=== PATIENT | male | born 1955 | race Caucasian/White ===

== ENCOUNTER 2018-02-12 02:46 | Emergency (ER) | payer OTHER ==
[2018-02-12] MEDS ORDERED: MEPERIDINE HCL 25 MG/0.5 ML ONE (03:35)
[2018-02-12] MEDS ORDERED: MEPERIDINE HCL 50 MG/ML AMP ONE (03:35)
[2018-02-12] MEDS ORDERED: PROMETHAZINE 25 MG/ML VIAL ONE (03:36)
--- NOTE | 2018-02-12 03:36 | EDPHYS ---
Physician Documentation [facility] Name: Ruddy Maya Age: 62 yrs Sex: Male : 1955 Arrival Date: 02/12/2018 Time: 02:47 Bed 14 Private MD: ED Physician Rj Del Rio HPI: 02/12 03:31 This 62 yrs old Male presents to ER via Unassigned with complaints of Low pkl Back Pain. 03:31 The patient presents with pain that is acute. The symptoms are located in the low back. pkl The pain radiates to the right leg. The problem was sustained when lifting heavy object, 1 week ago. Onset: The symptoms/episode began/occurred today. Associated signs and symptoms: The patient has no apparent associated signs or symptoms. Historical: - Allergies: 04:17 Lotrel; ea - Home Meds: 04:19 Humalog Pen 45 units during the day Sub-Q [Active]; Levemir 10 Units Am, 12 units pM ea subcutaneous soln [Active]; Lipitor 20 mg Oral tab 1 tab once daily [Active]; Micardis 40 mg Oral tab 1 tab once daily [Active]; - PMHx: 04:19 Diabetes - IDDM; ea - PSHx: 04:19 left knee surgery; lapband; ea - Immunization history:: Adult Immunizations up to date. - Social history:: Smoking status: Patient/guardian denies using tobacco. - Ebola Screening: : No symptoms or risks identified at this time. ROS: 03:31 Eyes: Negative for injury, pain, redness, and discharge, ENT: Negative for injury, pkl pain, and discharge, Neck: Negative for injury, pain, and swelling, Cardiovascular: Negative for chest pain, palpitations, and edema, Respiratory: Negative for shortness of breath, cough, wheezing, and pleuritic chest pain, Abdomen/GI: Negative for abdominal pain, nausea, vomiting, diarrhea, and constipation. 03:31 Back: Positive for pain with movement, of the lower back. 03:31 : Negative for urinary symptoms. 03:31 MS/extremity: Negative for acute changes. 03:31 Skin: Negative for rash. 03:31 Neuro: Negative for altered mental status. Exam: 03:31 Head/Face: Normocephalic, atraumatic. Eyes: Pupils equal round and reactive to light, pkl extra-ocular motions intact. Lids and lashes normal. Conjunctiva and sclera are non-icteric and not injected. Cornea within normal limits. Periorbital areas with no swelling, redness, or edema. ENT: Nares patent. No nasal discharge, no septal abnormalities noted. Tympanic membranes are normal and external auditory canals are clear. Oropharynx with no redness, swelling, or masses, exudates, or evidence of obstruction, uvula midline. Mucous membranes moist. Neck: Trachea midline, no thyromegaly or masses palpated, and no cervical lymphadenopathy. Supple, full range of motion without nuchal rigidity, or vertebral point tenderness. No Meningismus. Chest/axilla: Normal chest wall appearance and motion. Nontender with no deformity. No lesions are appreciated. Cardiovascular: Regular rate and rhythm with a normal S1 and S2. No gallops, murmurs, or rubs. Normal PMI, no JVD. No pulse deficits. Respiratory: Lungs have equal breath sounds bilaterally, clear to auscultation and percussion. No rales, rhonchi or wheezes noted. No increased work of breathing, no retractions or nasal flaring. Abdomen/GI: Soft, non-tender, with normal bowel sounds. No distension or tympany. No guarding or rebound. No evidence of tenderness throughout. 03:31 Back: pain, that is moderate, of the lower back, Straight leg raises: right lower extremity illicits pain, at 45 degrees. 03:31 : Exam negative for acute changes. 03:31 Musculoskeletal/extremity: Exam is negative for acute changes. 03:31 Skin: Exam negative for rash. 03:31 Neuro: Orientation: is normal, Mentation: is normal, Cranial nerves: grossly normal, Motor: is normal. Vital Signs: 03:35 BP 154 / 81; Pulse 96; Resp 18; Temp 97.9; Pulse Ox 100% on R/A; Weight 77.11 kg; ea Height 5 ft. 7 in. (170.18 cm); Pain 9/10; 03:50 BP 138 / 70; Pulse 88; Resp 18; Temp 97.6; Pulse Ox 98% on R/A; Pain 6/10; ea 03:35 Body Mass Index 26.63 (77.11 kg, 170.18 cm) ea MDM: 02:56 Patient medically screened. pkl 03:31 Data reviewed: vital signs, nurses notes. ED course: Advised MRI lumbar spines if pain pkl persist. Administered Medications: 03:33 Drug: Demerol 75 mg Route: IM; Site: left gluteus; ea 04:06 Follow up: Response: No adverse reaction; Marked relief of symptoms; Pain is decreased ea 03:33 Drug: Phenergan 12.5 mg Route: IM; Site: right gluteus; ea 04:06 Follow up: Response: No adverse reaction; Marked relief of symptoms ea Disposition: 02/12/18 03:36 Discharged to Home. Impression: Acute low back pain. Possible prolapsed intervertebral disc. - Condition is Stable. - Prescriptions for Ultram 50 mg Oral Tablet - take 1 tablet by ORAL route every 8 hours As needed; 30 tablet. Cyclobenzaprine 10 mg Oral Tablet - take 1 tablet by ORAL route 2 times per day As needed; 30 tablet. - Medication Reconciliation Form, Thank You Letter, Antibiotic Education, Prescription Opioid Use form. - Follow up: Private Physician; When: 1 week; Reason: Re-evaluation by your physician. - Problem is new. - Symptoms have improved. Signatures: Rj Del Rio MD MD pkl iVktoria Ford RN RN enmanuel Corrections: (The following items were deleted from the chart) 04:40 03:36 02/12/2018 03:36 Discharged to Home. Impression: Acute low back pain. Possible ea prolapsed intervertebral disc. Condition is Stable. Forms are Medication Reconciliation Form, Thank You Letter, Antibiotic Education, Prescription Opioid Use. Follow up: Private Physician; When: 1 week; Reason: Re-evaluation by your physician. Problem is new. Symptoms have improved. pkl
--- NOTE | 2018-02-12 04:40 | ER ---
Nurse's Notes [facility] Name: Ruddy Maya Age: 62 yrs Sex: Male : 1955 Arrival Date: 02/12/2018 Time: 02:47 Bed 14 Private MD: Diagnosis: Acute low back pain. Possible prolapsed intervertebral disc Presentation: 02/12 03:31 Acuity: MITRA 5 ea 03:31 Presenting complaint: Patient states: He is unable to sit due to pain to left side of ea hips that radiates to right leg occasional numbness. Pt reports it started when he tried reaching for something at the [employer]. Transition of care: patient was not received from another setting of care. Onset of symptoms was February 12, 2018. Risk Assessment: Do you want to hurt yourself or someone else? Patient reports no desire to harm self or others. Initial Sepsis Screen: Does the patient meet any 2 criteria? No. Patient's initial sepsis screen is negative. Does the patient have a suspected source of infection? No. Patient's initial sepsis screen is negative. Care prior to arrival: None. 03:31 Method Of Arrival: Ambulatory ea Historical: - Allergies: 04:17 Lotrel; ea - Home Meds: 04:19 Humalog Pen 45 units during the day Sub-Q [Active]; Levemir 10 Units Am, 12 units pM ea subcutaneous soln [Active]; Lipitor 20 mg Oral tab 1 tab once daily [Active]; Micardis 40 mg Oral tab 1 tab once daily [Active]; - PMHx: 04:19 Diabetes - IDDM; ea - PSHx: 04:19 left knee surgery; lapband; ea - Immunization history:: Adult Immunizations up to date. - Social history:: Smoking status: Patient/guardian denies using tobacco. - Ebola Screening: : No symptoms or risks identified at this time. Screenin:40 Abuse screen: Denies threats or abuse. Nutritional screening: No deficits noted. ea Tuberculosis screening: No symptoms or risk factors identified. Fall Risk None identified. Assessment: 03:31 General: Appears uncomfortable, Behavior is calm, cooperative, appropriate for age. ea Pain: Complains of pain in left low back and right low back Pain radiates to right leg Pain currently is 5 out of 10 on a pain scale. Quality of pain is described as aching. Neuro: No deficits noted. Level of Consciousness is awake, alert, obeys commands, Oriented to person, place, time, situation. Cardiovascular: No deficits noted. Patient's skin is warm and dry. Respiratory: No deficits noted. GI: No deficits noted. : No deficits noted. EENT: No deficits noted. Derm: No deficits noted. Musculoskeletal: Circulation, motion, and sensation intact. Reports pain in back and right leg. 03:50 Reassessment: Patient and/or family updated on plan of care and expected duration. Pain ea level reassessed. Patient is alert, oriented x 3, equal unlabored respirations, skin warm/dry/pink. Discharge instructions given to patient, verbalized the understanding of instruction. Patient states feeling better. Patient states symptoms have improved. Vital Signs: 03:35 BP 154 / 81; Pulse 96; Resp 18; Temp 97.9; Pulse Ox 100% on R/A; Weight 77.11 kg; ea Height 5 ft. 7 in. (170.18 cm); Pain 9/10; 03:50 BP 138 / 70; Pulse 88; Resp 18; Temp 97.6; Pulse Ox 98% on R/A; Pain 6/10; ea 03:35 Body Mass Index 26.63 (77.11 kg, 170.18 cm) ea ED Course: 02:47 Patient arrived in ED. am2 02:56 Rj Del Rio MD is Attending Physician. pkl 03:31 Viktoria Ford RN is Primary Nurse. ea 03:40 Arm band placed on right wrist. Patient placed in an exam room, on pulse oximetry. ea 03:40 Patient has correct armband on for positive identification. Bed in low position. Call ea light in reach. 03:50 No provider procedures requiring assistance completed. Patient did not have IV access ea during this emergency room visit. 04:15 Triage completed. ea Administered Medications: 03:33 Drug: Demerol 75 mg Route: IM; Site: left gluteus; ea 04:06 Follow up: Response: No adverse reaction; Marked relief of symptoms; Pain is decreased ea 03:33 Drug: Phenergan 12.5 mg Route: IM; Site: right gluteus; ea 04:06 Follow up: Response: No adverse reaction; Marked relief of symptoms ea Outcome: 03:36 Discharge ordered by . pkl 03:50 Discharged to home via wheelchair, with family. ea 03:50 Condition: improved 03:50 Discharge instructions given to patient, Instructed on discharge instructions, follow up and referral plans. medication usage, Demonstrated understanding of instructions, follow-up care, medications, Prescriptions given X 2. 04:00 Patient left the ED. ea Signatures: Rj Del Rio MD MD pkl Moreno, Amanda am2 Antunez, Elena, RN RN ea Corrections: (The following items were deleted from the chart) 05:54 04:40 Patient left the ED. ea ea 05:55 04:09 Reassessment: Patient and/or family updated on plan of care and expected ea duration. Pain level reassessed. Patient is alert, oriented x 3, equal unlabored respirations, skin warm/dry/pink. Discharge instructions given to patient, verbalized the understanding of instruction. Patient states feeling better. Patient states symptoms have improved. ea
[2018-02-12 05:03] VITALS: BP 154/81; TEMP 97.9; O2SAT 100
== END 2018-02-12 04:40 | disposition home or self-care (01) ==
LOC: ER 02:46
DX: M54.5 Low back pain (principal); E11.9 Type 2 diabetes mellitus without complications; Z79.4 Long term (current) use of insulin; Z88.8 Allergy status to other drugs, medicaments and biological substances
CPT/HCPCS: 96372; 99283; J2175; J2550

== ENCOUNTER 2018-05-06 11:33 | Emergency (ER) | payer OTHER ==
[2018-05-06] MEDS ORDERED: TETRACAINE HCL 0.5% 2ML OPTH ONE (12:33)
[2018-05-06] MEDS ORDERED: FLUORESCEIN SODIUM 0.6 MG/WRAP ONE (12:33)
--- NOTE | 2018-05-06 13:12 | EDPHYS ---
Physician Documentation [facility] Name: Ruddy Maya Age: 62 yrs Sex: Male : 1955 Arrival Date: 05/06/2018 Time: 11:38 Bed 30 Private MD: ED Physician Kenji Calderon HPI: 05/06 12:30 This 62 yrs old Male presents to ER via Ambulatory with complaints of Eye pm1 Problem. 12:30 Onset: The symptoms/episode began/occurred 2 day(s) ago. Duration: the symptoms are pm1 continuous. Aggravated by nothing. Alleviated by nothing. Associated signs and symptoms: Pertinent negatives: vision changes or blurry vision. Patient wears glasses. Severity of symptoms: in the emergency department the symptoms have improved. The patient has not experienced similar symptoms in the past. Patient with sensation of left eye foreign body on Monday that has resolved but is having some eyelid swelling and matting to left eye. Patient with onset of itching to his right eye today. Historical: - Allergies: 11:45 Lotrel; aa5 - PMHx: 11:45 Diabetes - IDDM; Hypertension; Hyperlipidemia; aa5 - PSHx: 11:45 left knee surgery; lapband; aa5 - Immunization history:: Last tetanus immunization: unknown. - Social history:: Smoking status: Patient/guardian denies using tobacco. - Ebola Screening: : No symptoms or risks identified at this time. ROS: 12:30 Constitutional: Negative for fever, chills, and weight loss. pm1 12:30 ENT: Negative for injury, pain, and discharge, Neck: Negative for injury, pain, and swelling, Cardiovascular: Negative for chest pain, palpitations, and edema, Respiratory: Negative for shortness of breath, cough, wheezing, and pleuritic chest pain, Abdomen/GI: Negative for abdominal pain, nausea, vomiting, diarrhea, and constipation, Back: Negative for injury and pain, MS/Extremity: Negative for injury and deformity, Skin: Negative for injury, rash, and discoloration, Neuro: Negative for headache, weakness, numbness, tingling, and seizure. 12:30 Eyes: Positive for discharge, itching, Negative for blurry vision, vision loss, visual disturbance. Exam: 12:30 Visual Acuity: I have reviewed the nursing documentation. pm1 12:30 Constitutional: This is a well developed, well nourished patient who is awake, alert, and in no acute distress. Head/Face: Normocephalic, atraumatic. 12:30 ENT: Nares patent. No nasal discharge, no septal abnormalities noted. Tympanic membranes are normal and external auditory canals are clear. Oropharynx with no redness, swelling, or masses, exudates, or evidence of obstruction, uvula midline. Mucous membranes moist. Neck: Trachea midline, no thyromegaly or masses palpated, and no cervical lymphadenopathy. Supple, full range of motion without nuchal rigidity, or vertebral point tenderness. No Meningismus. Chest/axilla: Normal chest wall appearance and motion. Nontender with no deformity. No lesions are appreciated. Cardiovascular: Regular rate and rhythm with a normal S1 and S2. No gallops, murmurs, or rubs. Normal PMI, no JVD. No pulse deficits. Respiratory: Lungs have equal breath sounds bilaterally, clear to auscultation and percussion. No rales, rhonchi or wheezes noted. No increased work of breathing, no retractions or nasal flaring. Abdomen/GI: Soft, non-tender, with normal bowel sounds. No distension or tympany. No guarding or rebound. No evidence of tenderness throughout. Back: No spinal tenderness. No costovertebral tenderness. Full range of motion. Skin: Warm, dry with normal turgor. Normal color with no rashes, no lesions, and no evidence of cellulitis. MS/ Extremity: Pulses equal, no cyanosis. Neurovascular intact. Full, normal range of motion. 12:30 Eyes: Periorbital structures: appear normal, Pupils: no acute changes, equal, round, and reactive to light and accomodation, Extraocular movements: intact throughout, Conjunctiva: injected, in the left eye, Corneas: abrasion, is not appreciated, foreign body, is not appreciated, a fluorescein strip employed to appreciate the findings, Sclera: no appreciated abnormality, Lids and lashes: appear normal. 12:30 Neuro: Orientation: is normal, Motor: moves all fours. Vital Signs: 11:45 BP 147 / 79; Pulse 75; Resp 16 S; Temp 97.7(TE); Pulse Ox 95% on R/A; Weight 99.34 kg aa5 (R); Height 5 ft. 7 in. (170.18 cm) (R); Pain 2/10; 11:45 Body Mass Index 34.30 (99.34 kg, 170.18 cm) aa5 Visual Acuity: 12:34 Left Eye Visual acuity 20/20, ; Right Eye Visual acuity 20/30, ; Both Eyes Visual aa5 acuity 20/20; With Lenses; MDM: 12:10 Patient medically screened. pm1 13:10 Data reviewed: vital signs. Data interpreted: Pulse oximetry: on room air is 95 %. pm1 Interpretation: normal. Counseling: I had a detailed discussion with the patient and/or guardian regarding: the historical points, exam findings, and any diagnostic results supporting the discharge/admit diagnosis, the need for outpatient follow up, to return to the emergency department if symptoms worsen or persist or if there are any questions or concerns that arise at home. 05/06 12:20 Order name: Visual Acuity; Complete Time: 12:34 pm1 05/06 12:20 Order name: Eye Tray; Complete Time: 12:26 pm1 05/06 12:20 Order name: Fluoresene Opth strip; Complete Time: 12:26 pm1 Administered Medications: 13:09 Drug: Tetracaine Drops 0.5 % 1 drops {Note: Administered by Isaac SNYDER.} Route: wh Ophthalmic; Site: both eyes; 13:22 Follow up: Response: No adverse reaction Disposition: 14:21 Co-signature as Attending Physician, Kenji Calderon MD I agree with the assessment and kdr plan of care. Disposition: 05/06/18 13:11 Discharged to Home. Impression: Conjunctivitis. - Condition is Stable. - Discharge Instructions: Viral Conjunctivitis, Bacterial Conjunctivitis, [id number]. - Prescriptions for tobramycin 0.3 % Ophthalmic drops - instill 1 drop by OPHTHALMIC route every 4 hours for 7 days; 10 milliliter. - Medication Reconciliation Form, Thank You Letter, Antibiotic Education, Prescription Opioid Use form. - Follow up: Emergency Department; When: As needed; Reason: Worsening of condition. Follow up: Private Physician; When: 2 - 3 days; Reason: Recheck today's complaints, Continuance of care, Re-evaluation by your physician. - Problem is new. - Symptoms have improved. Signatures: Kenji Calderon MD MD [facility] Radha Manzanares RN RN aa5 Isaac Corcoran MASS SPECTROMETRY SPECIALIST MASS SPECTROMETRY SPECIALIST pm1 Jason Arreola Corrections: (The following items were deleted from the chart) 13:22 13:11 05/06/2018 13:11 Discharged to Home. Impression: Conjunctivitis. Condition is wh Stable. Forms are Medication Reconciliation Form, Thank You Letter, Antibiotic Education, Prescription Opioid Use. Follow up: Emergency Department; When: As needed; Reason: Worsening of condition. Follow up: Private Physician; When: 2 - 3 days; Reason: Recheck today's complaints, Continuance of care, Re-evaluation by your physician. Problem is new. Symptoms have improved. pm1
--- NOTE | 2018-05-06 13:12 | ER ---
Nurse's Notes [facility] Name: Ruddy Maya Age: 62 yrs Sex: Male : 1955 Arrival Date: 05/06/2018 Time: 11:38 Bed 30 Private MD: Diagnosis: Conjunctivitis Presentation: 05/06 11:42 Presenting complaint: Patient states: "I think I have an eye infection". Pt states "It aa5 started when I felt like I had something in my left eye Monday but then it went away and both my eyes are irritated now". Pt states "I've taken amoxicillin for about 10 days now because my urologist put me on it". Transition of care: patient was not received from another setting of care. Onset of symptoms was April 2018. Risk Assessment: Do you want to hurt yourself or someone else? Patient reports no desire to harm self or others. Initial Sepsis Screen: Does the patient meet any 2 criteria? No. Patient's initial sepsis screen is negative. Does the patient have a suspected source of infection? No. Patient's initial sepsis screen is negative. Care prior to arrival: None. 11:42 Method Of Arrival: Ambulatory aa5 11:42 Acuity: MITRA 4 aa5 Historical: - Allergies: 11:45 Lotrel; aa5 - PMHx: 11:45 Diabetes - IDDM; Hypertension; Hyperlipidemia; aa5 - PSHx: 11:45 left knee surgery; lapband; aa5 - Immunization history:: Last tetanus immunization: unknown. - Social history:: Smoking status: Patient/guardian denies using tobacco. - Ebola Screening: : No symptoms or risks identified at this time. Screenin:07 Abuse screen: Denies threats or abuse. Nutritional screening: No deficits noted. aa5 Tuberculosis screening: No symptoms or risk factors identified. Fall Risk None identified. Assessment: 11:55 General: Appears comfortable, Behavior is calm, cooperative. Pain: Complains of pain in aa5 right eye and left eye Pain currently is 2 out of 10 on a pain scale. Quality of pain is described as "irritation" Pain began 2-3 days ago. Is continuous. Neuro: Level of Consciousness is awake, alert, obeys commands, Oriented to person, place, time, situation. Cardiovascular: Patient's skin is warm and dry. Respiratory: Airway is patent Respiratory effort is even, unlabored, Respiratory pattern is regular, symmetrical. GI: No signs and/or symptoms were reported involving the gastrointestinal system. : No signs and/or symptoms were reported regarding the genitourinary system. EENT: mild redness noted to sclera of both eyes . Derm: Skin is pink, warm \\T\\ dry. Musculoskeletal: Range of motion: intact in all extremities. 13:12 Reassessment: Patient appears in no apparent distress at this time. Patient and/or wh family updated on plan of care and expected duration. Pain level reassessed. Patient is alert, oriented x 3, equal unlabored respirations, skin warm/dry/pink. Vital Signs: 11:45 BP 147 / 79; Pulse 75; Resp 16 S; Temp 97.7(TE); Pulse Ox 95% on R/A; Weight 99.34 kg aa5 (R); Height 5 ft. 7 in. (170.18 cm) (R); Pain 2/10; 11:45 Body Mass Index 34.30 (99.34 kg, 170.18 cm) aa5 Visual Acuity: 12:34 Left Eye Visual acuity 20/20, ; Right Eye Visual acuity 20/30, ; Both Eyes Visual aa5 acuity 20/20; With Lenses; ED Course: 11:38 Patient arrived in ED. aa5 11:42 Arm band placed on. aa5 11:42 Patient has correct armband on for positive identification. Bed in low position. Call aa5 light in reach. Side rails up X 1. 11:44 Triage completed. aa5 11:46 Radha Manzanares RN is Primary Nurse. aa5 11:54 Isaac Corcoran NP is PHCP. pm1 11:54 Kenji Calderon MD is Attending Physician. pm1 13:08 Primary Nurse role handed off by Radha Manzanares RN 13:08 Jason Arreola is Primary Nurse. 13:21 No provider procedures requiring assistance completed. Patient did not have IV access during this emergency room visit. Administered Medications: 13:09 Drug: Tetracaine Drops 0.5 % 1 drops {Note: Administered by Isaac SNYDER.} Route: Ophthalmic; Site: both eyes; 13:22 Follow up: Response: No adverse reaction Outcome: 13:11 Discharge ordered by . pm1 13:21 Discharged to home ambulatory. 13:21 Condition: good 13:21 Discharge instructions given to patient, Instructed on discharge instructions, follow up and referral plans. medication usage, POC Conjunctivitis Demonstrated understanding of instructions, follow-up care, medications, POC and eye care Prescriptions given X 1. 13:22 Patient left the ED. Signatures: Radha Manzanares, RN RN aa5 Isaac Corcoran NP NEUROLOGY TECHNOLOGIST pm1 Jason Arreola Corrections: (The following items were deleted from the chart) 11:46 11:45 BP 147 / 79; Pulse 75bpm; Resp 16bpm; Spontaneous; Pulse Ox 95% RA; Temp 97.7F aa5 Temporal; 99.34 kg Reported; Height 5 ft. 7 in. Reported; BMI: 34.3; aa5
[2018-05-06 13:27] VITALS: BP 147/79; TEMP 97.7; O2SAT 95
== END 2018-05-06 13:22 | disposition home or self-care (01) ==
LOC: ER 11:33
DX: H10.9 Unspecified conjunctivitis (principal); I10 Essential (primary) hypertension; Z88.8 Allergy status to other drugs, medicaments and biological substances
CPT/HCPCS: 99283